=== PATIENT | female | born 1955 | race Two or more races ===

== ENCOUNTER 2019-09-17 10:00 | Inpatient (IN) | payer OTHER, SELFPAY ==
[2019-08-19 08:43] VITALS: BMI 29.8
[2019-08-19 08:54] VITALS: BP 162/92; PULSE 81; RESP 18; TEMP 36.9; O2SAT 97
[2019-09-17] VITALS (10 sets, daily range): BP systolic 117–157; BP diastolic 58–98; PULSE 72–95; RESP 10–18; TEMP 35.6–36.8; O2SAT 93–100; BMI 29.9
--- NOTE | ~2019-09-17 | XR_ITS ---
EXAMINATION: XR knee LT 2V DATE: 09/17/2019 10:34 INDICATION: Total left knee arthroplasty. Postop. TECHNIQUE: 2 views of left knee were obtained. COMPARISON: None. FINDINGS: There is a total left knee arthroplasty without patellar resurfacing in near-anatomic align ment. No fracture. There is gas in the knee joint and soft tissues, consistent with recent surgery. A nterior skin celine are noted. IMPRESSION: 1. Total left knee arthroplasty in near-anatomic alignment. Reviewed, dictated and finalized at location A. ATCHER REFINERY
[2019-09-17] MEDS: LACTATED RINGERS 1,000 ML 30 ML IV CONT ×2 (07:15→10:13)
--- NOTE | 2019-09-17 07:35 | WPDANESEPPF ---
Anes - Initial Pre Proc Eval Procedure: Operation Date: 09/17/19 07:30 Proposed Procedures p Left Total Knee Arthroplasty(Left) - Prasanna Ramos MD Date/Time: 09/17/19 07:35 Surgeon: Prasanna Ramos MD Pre Op Diagnosis: Left Knee DJD Patient Data Age: 64 Gender: F Height: 1.57 m Weight: 74.4 kg Last Vital Signs Temp 36.7 C 09/17/19 07:00 Pulse 81 09/17/19 07:00 Resp 18 09/17/19 07:00 BP 157/89 H 09/17/19 07:00 Pulse Ox 99 09/17/19 07:00 Allergies Allergy/AdvReac Type Severity Reaction Status Date / Time tetracycline Allergy Unknown Rash Verified 08/19/19 09:31 Home Medications Medication Instructions Recorded Confirmed Type amlodipine 10 mg PO DAILY 08/19/19 08/19/19 History chlorhexidine gluconate 4 % 1 applic TOPICAL ONCE #236 ml 08/19/19 08/19/19 Rx topical liquid furosemide 20 mg PO DAILY 08/19/19 08/19/19 History levothyroxine 100 mcg PO DAILY 08/19/19 08/19/19 History mv,Ca,min-folic acid-vit K1 1 tablet PO DAILY 08/19/19 08/19/19 History [One-A-Day Women's 50 Plus] naproxen sodium [Aleve] 440 mg PO PRN PRN 08/19/19 08/19/19 History simvastatin 10 mg PO DAILY 08/19/19 08/19/19 History Patient hx anesthesia problems: none Family hx anesthesia problems: none [facility] Past Medical History Medical History (Updated 08/19/19 @ 12:58 by JESS Brandon) Degenerative joint disease of knee HTN (hypertension) Left knee pain Vision abnormalities Social History Social History Smoking status: Heavy tobacco smoker Alcohol intake: current Anes - Eval Final PreProcedure Day of Procedure 09/17/19 07:35 Patient weight: obese Heart: regular rate and rhythm Lungs: clear to auscultation and normal air movement Airway: Mallampati scale class II Neurological: alert and oriented Last oral intake: >/= 8 hours ASA classification: III Emergent: no Anesthetic plan: proceed Anesthesia type and monitoring: general Informed Consent: The patient's anesthetic plan and its attendant risks and benefits were discussed with the patient/family/POA. Questions were solicited and answers provided to the satisfaction of the patient/family/POA.
--- NOTE | 2019-09-17 07:37 | WPDHPUPDATE1 ---
History and Physical Update Update Date/Time: 09/17/19 07:37 History and Physical has been reviewed, including an updated exam of the patient. There are NO changes in the patient's condition. Risks, benefits, and alternatives have been discussed and questions answered. Patient agrees to proceed with procedure.
[2019-09-17] MEDS: ceFAZolin 2 GM/D5W 50 ML 2 GM/50 ML BAG IVPB ×3 (07:54→22:20)
--- NOTE | 2019-09-17 07:54 | WPDANESPNB ---
Anes - Peripheral Nerve Block Date/Time: 09/17/19 07:54 I have discussed with the patient/family/POA the placement of a peripheral nerve block for post-operative pain management, including associated risks, benefits, complications, and side effects. Alternative methods of post-operative analgesia were detailed. Questions were solicited and answers provided to the satisfaction of the patient/family/POA. Time-Out: A pre-procedural Time-Out was completed immediately before starting the procedure and confirmed: Patient Identification, Site, Procedure, Patient Position and the Availability of Requisite Equipment. Clinical Indications: Acute post-operative pain management requested by the operative surgeon. Nerve Block Insertion Note Anes-nerve block: femoral left Patient position: supine Skin prep: chlorhexidine Needle: 22 gauge, stimulating, insulated echogenic needle. Needle length: 80 mm Technique: ultrasound Technique comment: in plane Injectate: bupivacaine 0.5% with epi 5 mcg/ml (30cc) and dexamethasone (mg) (4mg) Observations: tolerated well Complications: none Procedure start time:: 740 Procedure end time::
[2019-09-17] MEDS: IBUPROFEN IV 800 MG/200 ML 800 MG/200 ML BAG 400 MG IVPB (08:02)
--- NOTE | 2019-09-17 09:55 | PM.OP ---
Procedure Note - Brief Procedure Note - Brief Date of procedure: 09/17/19 Pre-op diagnosis: Left Knee DJD Post-op diagnosis: same Procedure performed: L TKA Anesthesia: GETA Surgeon: Prasanna Ramos MD Estimated blood loss (mL): 100 Complications: No immediate complications Condition: stable Disposition: PACU
--- NOTE | 2019-09-17 11:52 | PC.NURSE ---
This patient, Janis Hubers, was admitted to 3 [facility] Surg Room 328-01. Patient/family oriented to hospital policies and general routines including ID bracelet, bed and alarms, visiting hours, pain management, procedures, bathroom and other care routines, personal items, smoking policy, room service/diet, and visiting hours. Valuables list has been completed. Information on how to activate the Rapid Response Team has been discussed. Patient/Family are encouraged to report perceived risks to care and to ask questions if they do not understand what they are told or what they should do.
[2019-09-17] MEDS: SODIUM CHLORIDE 0.9% IV 1,000 ML 125 ML IV CONT (12:06)
--- NOTE | 2019-09-17 13:14 | OP_ITS ---
DATE OF PROCEDURE: 09/17/2019 PREOPERATIVE DIAGNOSIS: Left knee degenerative joint disease. POSTOPERATIVE DIAGNOSIS: Left knee degenerative joint disease. PROCEDURE: Left total knee arthroplasty. ANESTHESIA: General. COMPLICATIONS: None. INDICATIONS: This is a 64-year-old female with end-stage left knee DJD. She was indicated for left total knee arthroplasty. DESCRIPTION OF PROCEDURE: The patient was taken to the operating room in stable condition and placed in supine position. General anesthesia was induced and the left lower extremity was prepped and draped sterilely from the toes to the thigh. A midline skin incision was made. Medial parapatellar arthrotomy was made. Patella was everted. There was severe arthrosis in all 3 compartments of the knee joint. IM elizabet was placed in the femur. A distal femoral cut was made at 5 degrees of valgus removing approximately 9 mm of bone from the high side. Then, the knee was sized to 65, so a cutting block was placed in 3 degrees external rotation in line with Ted line. Anterior, posterior, and chamfer cuts were made to the femur. The cuts were excellent. Next, an IM elizabet was placed in tibia and a transtibial cut was made along the long axis of the tibia removing approximately 10 mm of bone from the high side. The tibia was planed to a smooth surface. Posterior osteophytes were removed with an osteotome. A 67 tibial trial was placed in line with one-third medial aspect of the tibial tubercle and then a trial 65 femoral component was placed and then eventually a 12 poly trial was placed. The knee came out to full extension. There was good stability in varus valgus stress. There was good AP stability as well. There was no excessive rollback in flexion, and there was no patellar tilt. The trial instrumentation was removed and then a Biomet #67 tibial component then was press-fit into the tibia and the fit was excellent. Next, a Biomet 65 femoral component was tapped into place and it was flushed with the cut surfaces. A #12 CRE poly then was placed and attached and locked in place. The knee came out to full extension. There was good stability in varus-valgus stress in both flexion and extension. There was good AP stability. The patella tracked without any tilt and there was no excessive rollback in flexion. The tourniquet was deflated. The bleeders were cauterized. The knee joint then was washed out with a mixture of sterile Betadine and sterile water for 3 minutes, and then the arthrotomy was approximated with #1 Vicryl suture and subcutaneous tissues with 2-0 Vicryl. The skin was approximated with celine. Wounds were washed, placed sterile dressing. The patient then was extubated and sent to recovery. Nunu I MT: Cecilia
[2019-09-17] MEDS: DOCUSATE SODIUM 100 MG CAPSULE PO (16:27)
[2019-09-17] MEDS: DIAZEPAM 5 MG TABLET PO (16:27)
[2019-09-17] MEDS: CELECOXIB 200 MG CAPSULE PO (16:29)
[2019-09-17] MEDS: FAMOTIDINE 20 MG TABLET PO (21:28)
[2019-09-18] MEDS: LEVOTHYROXINE SODIUM 100 MCG TABLET PO (05:55)
[2019-09-18 05:56] LABS: Basophils Percent Auto 0.3 % (0.2-1.2); Hematocrit 26.5 % (37.0-47.0); Hemoglobin 8.3 g/dL (12.0-15.0); Immature Granulocyte Absolute 0.06 K/mm3 (0.00-0.031); Immature Granulocyte Percent A 0.5 % (0-0.5); Lymphocytes Absolute Auto 1.56 K/mm3 (0.9-3.2); Lymphocytes Percent Auto 12.5 % (18.3-44.2); Mean Corpuscular HGB Conc 31.3 g/dl (32-36); Mean Corpuscular Hemoglobin 25.2 pg (26-34); Mean Corpuscular Volume 80.5 fl (80-100); Mean Platelet Volume 11.2 fl (7.4-10.4); Monocytes Absolute Auto 1.6 K/mm3 (0.1-0.6); Neutrophils Absolute Auto 9.2 K/mm3 (1.3-6.7); Neutrophils Percent Auto 73.7 % (45.5-73.1); Platelet Count Result 230 k/mm3 (150-375); Red Blood Count 3.29 M/mm3 (4.2-5.4); Red Cell Distribution Width 13.5 % (11.5-14.5); White Blood Count 12.5 K/mm3 (4.5-10.0)
[2019-09-18] MEDS: ceFAZolin 2 GM/D5W 50 ML 2 GM/50 ML BAG IVPB (05:56)
[2019-09-18] MEDS: DIAZEPAM 5 MG TABLET PO ×2 (05:59→13:50)
[2019-09-18 06:00] VITALS: BP 130/77; PULSE 77; RESP 18; TEMP 36.6; O2SAT 100
[2019-09-18 06:22] LABS: Blood Urea Nitrogen 14 mg/dL (7-17); Calcium 8.5 mg/dL (8.4-10.2); Carbon Dioxide 25 mmol/L (22-30); Chloride 101 mmol/L (98-107); Estimated CRCL calculation 66 ml/min; Estimated Glomerular Filt Rate > 60; Glucose 124 mg/dL (65-105); Potassium 3.8 mmol/L (3.4-5.0); Sodium 137 mmol/L (137-145)
--- NOTE | 2019-09-18 08:58 | PM.IMCN ---
Assessment and Plan Assessment and plan (1) Degenerative joint disease of knee: Qualifiers: Osteoarthritis type: primary Laterality: bilateral Qualified Code(s): M17.0 - Bilateral primary osteoarthritis of knee Code(s): M17.10 - Unilateral primary osteoarthritis, unspecified knee Status: Acute Assessment and Plan: Patient states this is in both knees with left being worse than right. POD [address] Ramos. Patient is doing well overall Post op management, PT/OT, DVT prophylaxis, and pain management per primary service Monitor for improvement (2) HTN (hypertension): Code(s): I10 - Essential (primary) hypertension Status: Acute Assessment and Plan: BP 130s sys. No dizziness/lightheadedness Continue with home amlodipine Patient states she usually only takes lasix 3 times per week as needed for fluid retention . Will hold this for now and likely resume at discharge Monitor (3) Hypothyroidism: Code(s): E03.9 - Hypothyroidism, unspecified Status: Acute Assessment and Plan: No acute issues at this time Continue levothyroxine home dose (4) Dyslipidemia: Code(s): E78.5 - Hyperlipidemia, unspecified Status: Acute Assessment and Plan: No acute issues at this time Continue simvastatin Additional Plan Supervising physician for this Hospitalist Consultation is Dr. Janis Stanton DOS 09/18/19 at roughly 8:45 Thank you for allowing the Hospitalist team to care for this patient during their stay. We will continue to follow with you. Please call with any questions HPI Data of Consult Consult date: 09/18/19 Requesting Physician: Prasanna Ramos MD Primary Care Provider: Dick Thompson Consult Narrative Narrative: Janis Kapoor is a 64 year old female With history of hypothyroidism, HTN, and OA of B/L knees who presented to the hospital for left total knee arthroplasty per Dr. Ramos POD1; Hospitalist service has been consulted for medical management of co-morbid conditions. Patient states her bilateral knee pain really began to worsen in her left knee sometime last year to a point were oral anti-flammatories were not helping with her pain and she could not even mow her lawn or do other ADLs without being in pain. She states she had an imaging of the left knee and was explained to her her knee was [id number] ; she decided to proceed for elective LTK arthroplast yesterday. She stated at its worse, pain was 9/10; today she notes her knee pain is about 6/10. She reports doing well walking to the bathroom with OT this morning. She has no other complaints today. Denies f/c/ns, headaches, dizziness, lightheadedness, changes in v/h, cp/palpitations, sob/cough, n/v/d/c, abd pain, dysphagia, melena, brbpr, dysuria, hematuria, cloudy urine, calf pain/swelling, s/sx of stroke Review of Systems Review of Systems: All systems reviewed & are unremarkable except as noted in HPI and below PMFSH Past Medical History Medical History Degenerative joint disease of knee Dyslipidemia HTN (hypertension) Hypothyroidism Left knee pain Vision abnormalities Surgical History Surgical History (Updated 09/18/19 @ 09:11 by Twan Mckenzie PA-C) History of total left knee replacement (~08/2019) Family History Family History Father Hypertension Carcinoma of colon Mother Cerebrovascular accident Diabetes mellitus CHF (congestive heart failure) Other Family history of arthritis Social History Social History Social History: Patient lives at home alone. 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 Her PCP is Dr. Thompson
[2019-09-18 10:25] VITALS: O2SAT 97
[2019-09-18 10:43] VITALS: BP 129/70; PULSE 107
[2019-09-18] MEDS: DOCUSATE SODIUM 100 MG CAPSULE PO ×2 (10:45→20:28)
[2019-09-18] MEDS: SIMVASTATIN 10 MG TABLET PO (10:45)
[2019-09-18] MEDS: AMLODIPINE BESYLATE 5 MG TABLET 10 MG PO (10:45)
[2019-09-18] MEDS: ASPIRIN 325 MG ENTERIC TABLET 650 MG PO (10:46)
[2019-09-18] MEDS: CELECOXIB 200 MG CAPSULE PO ×2 (10:47→20:28)
[2019-09-18] MEDS: FAMOTIDINE 20 MG TABLET PO ×2 (10:50→20:28)
--- NOTE | 2019-09-18 13:27 | PM.PNORT ---
Progress Note: A&P Additional Plan POD 1 WITH SLOW PROGRESS WITH PT. CONT PT. Time Spent With Patient Time with patient: less than 15 minutes Subjective Subjective Date/Time Seen: 09/18/19 13:27 POD 1 DOING WELL. NO CALF PAIN Exam Extrem: Other: VSS AFEBRILE DRESSING DRY NV INTACT NEG HOMANS SIGN CALF SOFT NON TENDER. Objective Data Vital Signs Vital Signs: Vital Signs - 24 hr 09/17/19 14:00 09/17/19 22:00 09/18/19 06:00 Temperature 35.6 C L 36.6 C 36.6 C Pulse Rate 93 95 77 Respiratory Rate 16 18 18 Blood Pressure 130/79 128/58 L 130/77 Pulse Oximetry 99 98 100 09/18/19 10:25 09/18/19 10:43 Temperature Pulse Rate 107 H Respiratory Rate Blood Pressure 129/70 Pulse Oximetry 97 Intake/Output Intake/Output: Intake & Output 09/15/19 09/16/19 09/17/19 09/18/19 23:59 23:59 23:59 23:59 Intake Total 3750 1170 Output Total 600 2000 Balance 3150 -830 Meds/Results Medications: Active Medications Generic Name Dose Route Start Last Admin Trade Name Freq PRN Reason Stop Dose Admin Acetaminophen 1,000 mg 09/17/19 09:59 Tylenol Tablet PO Q6H PRN Mild Pain (1-3) Amlodipine Besylate 10 mg 09/18/19 09:00 09/18/19 10:45 Norvasc PO 10 mg DAILY ELAINA Administration Aspirin 650 mg 09/18/19 09:00 09/18/19 10:46 Aspirin Ec PO 650 mg DAILY ELAINA Administration Celecoxib 200 mg 09/17/19 17:00 09/18/19 10:47 Celebrex PO 200 mg BIDWM ELAINA Administration Diazepam 5 mg 09/17/19 09:59 09/18/19 05:59 Valium Po PO 5 mg Q8H PRN Administration Spasms Diphenhydramine HCl 25 mg 09/17/19 09:59 Benadryl Inj IV PUSH Q6H PRN Itching Docusate Sodium 100 mg 09/17/19 17:00 09/18/19 10:45 Colace Capsule PO 100 mg BID ELAINA Administration Famotidine 20 mg 09/17/19 21:00 09/18/19 10:50 Pepcid PO 20 mg Q12HR ELAINA Administration Furosemide 20 mg 09/18/19 09:00 09/18/19 10:49 Lasix Tablet PO Not Given DAILY [facility] Levothyroxine Sodium 100 mcg 09/18/19 06:30 09/18/19 05:55 Synthroid PO 100 mcg DAILY@0630 [facility] Administration Morphine Sulfate 4 mg 09/17/19 09:59 Morphine Sulfate Inj IV PUSH Q2H PRN Breakthrough pain rated 7-10 Naloxone HCl 0.1 mg 09/17/19 09:59 Narcan IV PUSH Q2M PRN Opiate Reversal Ondansetron HCl 4 mg 09/17/19 09:59 Zofran Inj IV PUSH Q4H PRN Nausea And Vomiting Oxycodone/Acetaminophen 1 tablet 09/17/19 09:59 09/18/19 09:22 Percocet 5-325 Mg PO 1 tablet Q4H PRN Administration Pain Rated 4-6 Simvastatin 10 mg 09/18/19 09:00 09/18/19 10:45 Zocor PO 10 mg DAILY ELAINA Administration Radiology Results: ITS Impressions Knee X-Ray 09/17/19 10:46 IMPRESSION: 1. Total left knee arthroplasty in near-anatomic alignment. Labs Labs: Laboratory Results - last 24 hr 09/18/19 09/18/19 05:36 05:36 WBC 12.5 H RBC 3.29 L Hgb 8.3 L Hct 26.5 L MCV 80.5 MCH 25.2 L MCHC 31.3 L RDW 13.5 Plt Count 230 MPV 11.2 H Immature Gran % (Auto) 0.5 Neut % (Auto) 73.7 H Lymph % (Auto) 12.5 L [place] % (Auto) 13.0 H Eos % (Auto) 0.0 Baso % (Auto) 0.3 Lymph # (Auto) 1.56 [place] # (Auto) 1.6 H Eos # (Auto) 0.0 Baso # (Auto) 0.0 Abs Immat Gran (auto) 0.06 H Absolute Neuts (auto) 9.2 H Absolute Nucleated RBC 0.0 Nucleated RBC % 0.0 Sodium 137 Potassium 3.8 Chloride 101 Carbon Dioxide 25 BUN 14 Creatinine 0.70 Estim Creat Clear Calc 66 Estimated GFR > 60 Glucose 124 H Calcium 8.5 Quality VTE Prophylaxis VTE prophylaxis: pharmacologic ordered (per primary service)
--- NOTE | 2019-09-18 13:49 | WPDANESPN ---
Anes - Prog Note Post-Op Date/Time: 09/18/19 13:49 Cardiovascular status: normal Respiratory status: normal Airway patency: baseline Mental status: baseline Post-Op hydration status: normal Vital Signs: Last Vital Signs Temp 36.6 C 09/18/19 06:00 Pulse 107 H 09/18/19 10:43 Resp 18 09/18/19 06:00 BP 129/70 09/18/19 10:43 Pulse Ox 97 09/18/19 10:25 Pain Score (VAS): 0/10. Patient resting in bed at time of assessment, appears comfortable. Support person at bedside. I/O: Intake & Output 09/17/19 09/18/19 09/18/19 23:59 07:59 15:59 Intake Total 2610 450 720 Output Total 600 2000 Balance 2009 720 Laboratory Tests 09/18/19 05:36 09/18/19 05:36 09/18/19 09/18/19 05:36 05:36 WBC 12.5 H RBC 3.29 L Hgb 8.3 L Hct 26.5 L MCV 80.5 MCH 25.2 L MCHC 31.3 L RDW 13.5 Plt Count 230 MPV 11.2 H Immature Gran % (Auto) 0.5 Neut % (Auto) 73.7 H Lymph % (Auto) 12.5 L [place] % (Auto) 13.0 H Eos % (Auto) 0.0 Baso % (Auto) 0.3 Lymph # (Auto) 1.56 [place] # (Auto) 1.6 H Eos # (Auto) 0.0 Baso # (Auto) 0.0 Abs Immat Gran (auto) 0.06 H Absolute Neuts (auto) 9.2 H Absolute Nucleated RBC 0.0 Nucleated RBC % 0.0 Sodium 137 Potassium 3.8 Chloride 101 Carbon Dioxide 25 BUN 14 Creatinine 0.70 Estim Creat Clear Calc 66 Estimated GFR > 60 Glucose 124 H Calcium 8.5 Post-procedural complaints: none Patient Feedback: Patient satisfied with anesthetic care.
[2019-09-18 22:20] VITALS: BP 126/65; PULSE 102; RESP 20; TEMP 37.2; O2SAT 95
[2019-09-19 06:00] VITALS: BP 132/65; PULSE 106; RESP 16; TEMP 36.9; O2SAT 96
[2019-09-19] MEDS: LEVOTHYROXINE SODIUM 100 MCG TABLET PO (06:14)
[2019-09-19 06:21] LABS: Basophils Percent Auto 0.5 % (0.2-1.2); Eosinophils Absolute Auto 0.1 K/mm3 (0-0.3); Eosinophils Percent Auto 0.9 % (0-4.4); Hematocrit 25.5 % (37.0-47.0); Hemoglobin 7.9 g/dL (12.0-15.0); Immature Granulocyte Absolute 0.03 K/mm3 (0.00-0.031); Immature Granulocyte Percent A 0.4 % (0-0.5); Lymphocytes Absolute Auto 2.08 K/mm3 (0.9-3.2); Lymphocytes Percent Auto 26.2 % (18.3-44.2); Mean Corpuscular Hemoglobin 25.4 pg (26-34); Mean Platelet Volume 10.4 fl (7.4-10.4); Monocytes Absolute Auto 1.1 K/mm3 (0.1-0.6); Monocytes Percent Auto 13.2 % (2.6-8.5); Neutrophils Absolute Auto 4.7 K/mm3 (1.3-6.7); Neutrophils Percent Auto 58.8 % (45.5-73.1); Platelet Count Result 185 k/mm3 (150-375); Red Blood Count 3.11 M/mm3 (4.2-5.4); Red Cell Distribution Width 13.7 % (11.5-14.5); White Blood Count 7.9 K/mm3 (4.5-10.0)
[2019-09-19] MEDS: FAMOTIDINE 20 MG TABLET PO (09:01)
[2019-09-19] MEDS: DOCUSATE SODIUM 100 MG CAPSULE PO ×2 (09:01→17:46)
[2019-09-19] MEDS: AMLODIPINE BESYLATE 5 MG TABLET 10 MG PO (09:01)
[2019-09-19] MEDS: ASPIRIN 325 MG ENTERIC TABLET 650 MG PO (09:02)
[2019-09-19] MEDS: SIMVASTATIN 10 MG TABLET PO (09:02)
[2019-09-19] MEDS: CELECOXIB 200 MG CAPSULE PO ×2 (09:02→17:46)
--- NOTE | 2019-09-19 11:53 | PM.IMPN ---
Progress Note: A&P Assessment and Plan (1) Degenerative joint disease of knee: Qualifiers: Osteoarthritis type: primary Laterality: bilateral Qualified Code(s): M17.0 - Bilateral primary osteoarthritis of knee Code(s): M17.10 - Unilateral primary osteoarthritis, unspecified knee Status: Acute Assessment and Plan: POD [address] Ramos. Patient is doing well overall, improving with therapy. Wishing to go home today Post op management, PT/OT, DVT prophylaxis, and pain management per primary service Monitor for improvement (2) HTN (hypertension): Code(s): I10 - Essential (primary) hypertension Status: Acute Assessment and Plan: BP 130s sys. No dizziness/lightheadedness Continue with home amlodipine Patient states she usually only takes lasix 3 times per week as needed for fluid retention . Will hold this for now and likely resume at discharge Monitor (3) Hypothyroidism: Code(s): E03.9 - Hypothyroidism, unspecified Status: Acute Assessment and Plan: No acute issues at this time Continue levothyroxine home dose (4) Dyslipidemia: Code(s): E78.5 - Hyperlipidemia, unspecified Status: Acute Assessment and Plan: No acute issues at this time Continue simvastatin Subjective Date/time seen: 09/19/19 11:53 This is a Hospitalist Consult Progress Note Interval history: Patient is a 64 yo F with history of hypothyroidism, HTN, and OA of B/L knees who is here for elective LTKA per Dr. Ramos POD2; Hospitalist service has been consulted for medical management of comorbid conditions during hospital stay. Patient is doing better today. Her pain is reasonable today. She thinks she did well with therapy today. She is hoping to be discharged today. Patient has no other complaints. Denies f/c/ns, headaches, dizziness, lightheadedness, changes in v/h, cp/palpitations, sob/cough, n/v/d/c, abd pain, dysphagia, melena, brbpr, dysuria, hematuria, cloudy urine, s/sx of stroke Review of Systems Review of Systems: All systems reviewed & are unremarkable except as noted in HPI and below Exam Narrative: Exam Narrative: Patient lying in semi-stovall's position at time of visit; sleeping, but easily arousable with verbal stimuli Const: General: cooperative, healthy appearing, comfortable, no acute distress, well developed and alert Nutritional Appearance: well nourished Orientation/consciousness: patient oriented x3 HENMT: Head: normocephalic and atraumatic Ears: external ears normal General nose exam: Normal nares present Face and sinus: face symmetric Mouth: Yes lip normal and Yes moist mucous membranes Teeth and gingiva: dentition normal Throat: posterior oropharynx normal and uvula midline Eyes: General: appearance normal, both eyes and all related structures Sclera: sclerae normal Pupils: Equal, round and reactive pupils present EOM: EOMs intact bilaterally Neck: Neck: trachea midline and supple Resp: Effort & Inspection: normal respiratory effort Auscultation: clear to auscultation bilaterally Cardio: Rate: regular rate Rhythm: regular rhythm Heart sounds: no murmurs GI: Inspection: non-distended GI Palp: No abdominal tenderness and Yes Soft to palpation Auscultation: normal bowel sounds and Hypoactive bowel sounds present Skin: General skin exam: normal color and no rashes or lesions noted Neuro: General: patient oriented x3, moves all extremities and no focal motor deficits Cranial nerves: Yes Equal, round and reactive pupils present Motor exam (neuro): 5/5 motor strength present throughout Sensory Exam: normal sensation Extrem: Right lower extremity: no edema Left lower extremity: no edema Other: No calf ttp b/l. Left knee wrapped in GABY bandage down to lower leg. Sens
--- NOTE | 2019-09-19 17:14 | PM.PNORT ---
Progress Note: A&P Additional Plan POD 2 WITH GOOD IMPROVEMENT WITH PT. OK TO DC HOME F/U IN 3 WEEKS. Subjective Subjective Date/Time Seen: 09/19/19 17:14 POD 2 DOING WELL. PROGRESS WITH PT IS GOOD, NO CALF PAIN Exam Extrem: Other: VSS AFEBRILE DRESSING DRY NV INTACT NEG HOMANS SIGN Objective Data Vital Signs Vital Signs: Vital Signs - 24 hr 09/18/19 22:20 09/19/19 06:00 Temperature 37.2 C 36.9 C Pulse Rate 102 H 106 H Respiratory Rate 20 16 Blood Pressure 126/65 132/65 Pulse Oximetry 95 96 Intake/Output Intake/Output: Intake & Output 09/16/19 09/17/19 09/18/19 09/19/19 23:59 23:59 23:59 23:59 Intake Total 3750 2530 880 Output Total 600 4350 600 Balance 3150 -1820 280 Meds/Results Medications: Active Medications Generic Name Dose Route Start Last Admin Trade Name Freq PRN Reason Stop Dose Admin Acetaminophen 1,000 mg 09/17/19 09:59 Tylenol Tablet PO Q6H PRN Mild Pain (1-3) Amlodipine Besylate 10 mg 09/18/19 09:00 09/19/19 09:01 Norvasc PO 10 mg DAILY ELAINA Administration Aspirin 650 mg 09/18/19 09:00 09/19/19 09:02 Aspirin Ec PO 650 mg DAILY ELAINA Administration Celecoxib 200 mg 09/17/19 17:00 09/19/19 09:02 Celebrex PO 200 mg BIDWM ELAINA Administration Diazepam 5 mg 09/17/19 09:59 09/18/19 13:50 Valium Po PO 5 mg Q8H PRN Administration Spasms Diphenhydramine HCl 25 mg 09/17/19 09:59 Benadryl Inj IV PUSH Q6H PRN Itching Docusate Sodium 100 mg 09/17/19 17:00 09/19/19 09:01 Colace Capsule PO 100 mg BID ELAINA Administration Famotidine 20 mg 09/17/19 21:00 09/19/19 09:01 Pepcid PO 20 mg Q12HR ELAINA Administration Furosemide 20 mg 09/18/19 09:00 09/18/19 10:49 Lasix Tablet PO Not Given DAILY ELAINA Levothyroxine Sodium 100 mcg 09/18/19 06:30 09/19/19 06:14 Synthroid PO 100 mcg DAILY@0630 ELAINA Administration Morphine Sulfate 4 mg 09/17/19 09:59 Morphine Sulfate Inj IV PUSH Q2H PRN Breakthrough pain rated 7-10 Naloxone HCl 0.1 mg 09/17/19 09:59 Narcan IV PUSH Q2M PRN Opiate Reversal Ondansetron HCl 4 mg 09/17/19 09:59 Zofran Inj IV PUSH Q4H PRN Nausea And Vomiting Oxycodone/Acetaminophen 1 tablet 09/17/19 09:59 09/19/19 06:18 Percocet 5-325 Mg PO 1 tablet Q4H PRN Administration Pain Rated 4-6 Oxycodone/Acetaminophen 2 tablet 09/18/19 13:40 09/19/19 10:09 Percocet 5-325 Mg PO 2 tablet Q4H PRN Administration Pain Rated 7-10 Simvastatin 10 mg 09/18/19 09:00 09/19/19 09:02 Zocor PO 10 mg DAILY ELAINA Administration Radiology Results: ITS Impressions Knee X-Ray 09/17/19 10:46 IMPRESSION: 1. Total left knee arthroplasty in near-anatomic alignment. Labs Labs: Laboratory Results - last 24 hr 09/19/19 06:07 WBC 7.9 RBC 3.11 L Hgb 7.9 L Hct 25.5 L MCV 82.0 MCH 25.4 L MCHC 31.0 L RDW 13.7 Plt Count 185 MPV 10.4 Immature Gran % (Auto) 0.4 Neut % (Auto) 58.8 Lymph % (Auto) 26.2 [place] % (Auto) 13.2 H Eos % (Auto) 0.9 Baso % (Auto) 0.5 Lymph # (Auto) 2.08 [place] # (Auto) 1.1 H Eos # (Auto) 0.1 Baso # (Auto) 0.0 Abs Immat Gran (auto) 0.03 Absolute Neuts (auto) 4.7 Absolute Nucleated RBC 0.0 Nucleated RBC % 0.0 Quality VTE Prophylaxis VTE prophylaxis: pharmacologic ordered (per primary service)
--- NOTE | 2019-10-17 13:46 | PM.DS ---
DS: Diagnosis Admitting Diagnosis Admitting Diagnosis: Unilateral primary osteoarthritis, left knee Discharge Diagnosis (1) Degenerative joint disease of knee: Qualifiers: Osteoarthritis type: primary Laterality: bilateral Qualified Code(s): M17.0 - Bilateral primary osteoarthritis of knee Code(s): M17.10 - Unilateral primary osteoarthritis, unspecified knee Status: Acute Assessment and Plan: post op left tka did very well during hospital course. she was stable throughout. she passed pt and was discharged home with home health DS: Summary Time Spent with Patient Time attestation: Total time spent providing and/or coordinating discharge services: 15 min Discharge Plan Discharge Attending physician on discharge: Prasanna Ramos Consulting providers: Janis Perez ; Twan Mckenzie ; Marvin Otero V. Discharging Clinician: Prasanna Ramos Anticipated Discharge Date/Time: 09/19/19 17:05 Patient Disposition: Home Health Service Activity: may shower, no driving and follow weight bearing status Diet: as tolerated Wound Care Instructions: keep dressing dry Discharge Instructions: Care Coordination. Patient to have [facility] [phone]. They will contact patient to schedule first appointment. Patient Instructions: Antibiotic Form, Pain Management (GEN) Stand Alone Forms: General Discharge Information Follow-up/Referrals: Prasanna Ramos MD [Physician] - 3 Weeks Discharge Medications: New aspirin 325 mg Tablet,Delayed Release (Dr/Ec) 650 mg PO DAILY 14 Days Qty: 28 RF: 0 Continued simvastatin 10 mg Tablet 10 mg PO DAILY RF: 0 amlodipine 10 mg Tablet 10 mg PO DAILY RF: 0 furosemide 20 mg Tablet 20 mg PO DAILY RF: 0 levothyroxine 100 mcg Capsule 100 mcg PO DAILY RF: 0 naproxen sodium [Aleve] 220 mg Capsule 440 mg PO PRN PRN (Reason: Pain) RF: 0 One-A-Day Women's 50 Plus 400-20 mcg Tablet 1 tablet PO DAILY RF: 0 No Action hydrocodone-acetaminophen [[place]] 5-325 mg tablet 1 tablet PO Q6H PRN (Reason: pain) Qty: 30 RF: 0 hydrocodone-acetaminophen [[place]] 5-325 mg tablet 1 tablet PO Q6H PRN (Reason: pain) Qty: 25 RF: 0 Date of admission: 09/17/19 10:00 Admitting Provider: Prasanna Ramos Discharge Date/Time: 09/19/19 18:20 Attending physician on admission: Prasanna Ramos Condition: Stable Quality VTE Prophylaxis VTE prophylaxis: pharmacologic ordered (per primary service)
== END 2019-09-19 18:20 | disposition home health service (06) | DRG 470 ==
LOC: ANH3MEDSUR 11:48
PROVIDERS: Physician Assistant; Admitting Provider Orthopaedic Surgery; Visit Provider Orthopaedic Surgery
PROC: 0SRD0JA Replacement of Left Knee Joint with Synthetic Substitute, Uncemented, Open Approach (ICD-10-PCS; CPT 27447; principal; 2019-09-17 07:30)
DX: M17.0 Bilateral primary osteoarthritis of knee (principal); Z28.21 Immunization not carried out because of patient refusal; E66.9 Obesity, unspecified; I10 Essential (primary) hypertension; E03.9 Hypothyroidism, unspecified; E78.5 Hyperlipidemia, unspecified; Z87.891 Personal history of nicotine dependence
CPT/HCPCS: 36415; 73560; 80048; 85025; 86850; 86900; 86901; 97110; 97116; 97162; 97165; 97530; 97535; A9270; C1713; C1776; J0131; J0171; J0690; J1100; J1170; J1741; J2250; J2270; J2405; J2704; J2795; J3010; J7030; J7120

== ENCOUNTER 2020-05-11 01:11 | Outpatient (CLI) | payer OTHER, SELFPAY ==
[2020-05-11 17:41] LABS: SARS-CoV-2 RNA PCR Negative
== END 2020-05-11 01:12 | disposition home or self-care (01) ==
LOC: ANHCOVIDDT 01:11
PROVIDERS: Visit Provider Internal Medicine Gastroenterology
DX: Z01.812 Encounter for preprocedural laboratory examination (principal); Z20.828 Contact with and (suspected) exposure to other viral communicable diseases
CPT/HCPCS: 87635; C9803; U0003

== ENCOUNTER 2020-05-13 01:22 | Day surgery (SDC) | payer OTHER, SELFPAY ==
[2020-05-07 12:55] VITALS: BMI 29.8
[2020-05-13 06:16] VITALS: BP 175/78; PULSE 82; RESP 18; TEMP 36.6; O2SAT 97
[2020-05-13] MEDS: LACTATED RINGERS 1,000 ML 150 ML IV CONT (06:37)
[2020-05-13] MEDS: AMPICILLIN 2 GM/NS 100 ML 2 GM/100 ML BAG IVPB (06:38)
--- NOTE | 2020-05-13 07:02 | WPDANESEPPF ---
Anes - Initial Pre Proc Eval Procedure: Operation Date: 05/13/20 07:30 Proposed Procedures p Esophagogastroduodenoscopy&Screen Colon - Micheal Lake MD Date/Time: 05/13/20 07:02 Surgeon: Micheal Lake MD Pre Op Diagnosis: Neoplasm Screening , Anemia Patient Data Age: 64 Gender: F Height: 5 ft 2 in Weight: 73.6 kg Last Vital Signs Temp 97.8 F 05/13/20 06:16 Pulse 82 05/13/20 06:16 Resp 18 05/13/20 06:16 BP 175/78 H 05/13/20 06:16 Pulse Ox 97 05/13/20 06:16 Allergies Allergy/AdvReac Type Severity Reaction Status Date / Time tetracycline Allergy Unknown Rash Verified 05/13/20 06:15 Home Medications Medication Instructions Recorded Confirmed Type One-A-Day Women's 50 Plus 1 tablet PO DAILY 08/19/19 05/07/20 History amlodipine 10 mg PO DAILY 08/19/19 05/07/20 History furosemide 20 mg PO DAILY 08/19/19 05/07/20 History levothyroxine 100 mcg PO DAILY 08/19/19 05/07/20 History naproxen sodium [Aleve] 440 mg PO PRN PRN 08/19/19 05/07/20 History simvastatin 10 mg PO DAILY 08/19/19 05/07/20 History aspirin 650 mg PO DAILY 14 Days #28 tablet 09/19/19 05/07/20 Rx tramadol 50 mg tablet 50 mg PO Q6H PRN 01/06/20 05/07/20 History amoxicillin 500 mg tablet 500 mg PO Q8H #8 tablet 04/27/20 05/07/20 Rx Patient hx anesthesia problems: none Family hx anesthesia problems: none PMFSH Past Medical History Medical History Degenerative joint disease of knee Dyslipidemia HTN (hypertension) Hypothyroidism Left knee pain Vision abnormalities Surgical History Surgical History History of total left knee replacement (~08/2019) Family History Family History Father Hypertension Carcinoma of colon Mother Cerebrovascular accident Diabetes mellitus CHF (congestive heart failure) Other Family history of arthritis Social History Social History Social History: Patient lives at home alone. 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 Her PCP is Dr. Thompson (her previous is Dr. Palomo). She wishes to be a Full Code. She designates her sister, Tyree Prather, as her surrogate MDM Smoking packs per day: 0.3 Smoking cigarettes per day: 6.0 Years smoked: 25 Smoking pack-years: 7.50 Smoking status: Former smoker Tobacco type: cigarettes Second hand tobacco smoke exposure: Yes Alcohol intake: current Drinks per week: 10 Alcohol use details: WINE Substance use: never Substance use type: does not use Living arrangements: alone Gender identity (if verbalized by the patient): Female Spiritual care concerns: No Agree to blood products: Yes Anes - Eval Final PreProcedure Day of Procedure 05/13/20 07:02 Patient weight: normal Heart: regular rate and rhythm Lungs: clear to auscultation Airway: Mallampati scale class II Neurological: alert and oriented Last oral intake: >/= 8 hours ASA classification: II Emergent: no Anesthetic plan: proceed Anesthesia type and monitoring: general GIVS and standard monitoring Informed Consent: The patient's anesthetic plan and its attendant risks and benefits were discussed with the patient/family/POA. Questions were solicited and answers provided to the satisfaction of the patient/family/POA.
--- NOTE | 2020-05-13 07:12 | PM.HPGS ---
History of Present Illness History of Present Illness Consent: Risks, benefits, and alternatives have been discussed and questions answered. Patient agrees to proceed with procedure. Chief complaint: Neoplasm Screening , Anemia Narrative: Janis Kapoor is a 64 year old female [facility] Past Medical History Medical History (Updated 05/13/20 @ 07:13 by Micheal Lake MD) Degenerative joint disease of knee Dyslipidemia HTN (hypertension) Hypothyroidism Left knee pain Vision abnormalities Surgical History Surgical History History of total left knee replacement (~08/2019) Family History Family History Father Hypertension Carcinoma of colon Mother Cerebrovascular accident Diabetes mellitus CHF (congestive heart failure) Other Family history of arthritis Social History Social History Social History: Patient lives at home alone. 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 Her PCP is Dr. Thompson (her previous is Dr. Palomo). She wishes to be a Full Code. She designates her sister, Tyree Prather, as her surrogate MDM Smoking packs per day: 0.3 Smoking cigarettes per day: 6.0 Years smoked: 25 Smoking pack-years: 7.50 Smoking status: Former smoker Tobacco type: cigarettes Second hand tobacco smoke exposure: Yes Alcohol intake: current Drinks per week: 10 Alcohol use details: WINE Substance use: never Substance use type: does not use Living arrangements: alone Gender identity (if verbalized by the patient): Female Spiritual care concerns: No Agree to blood products: Yes Meds Home Medications and Allergies Home Medications Medication Instructions Recorded Confirmed Type One-A-Day Women's 50 Plus 1 tablet PO DAILY 08/19/19 05/07/20 History amlodipine 10 mg PO DAILY 08/19/19 05/07/20 History furosemide 20 mg PO DAILY 08/19/19 05/07/20 History levothyroxine 100 mcg PO DAILY 08/19/19 05/07/20 History naproxen sodium [Aleve] 440 mg PO PRN PRN 08/19/19 05/07/20 History simvastatin 10 mg PO DAILY 08/19/19 05/07/20 History aspirin 650 mg PO DAILY 14 Days #28 tablet 09/19/19 05/07/20 Rx tramadol 50 mg tablet 50 mg PO Q6H PRN 01/06/20 05/07/20 History amoxicillin 500 mg tablet 500 mg PO Q8H #8 tablet 04/27/20 05/07/20 Rx Allergies Allergy/AdvReac Type Severity Reaction Status Date / Time tetracycline Allergy Unknown Rash Verified 05/13/20 06:15 Vital Signs Vital Signs - 24 hr 05/13/20 06:16 Temperature 36.6 C Pulse Rate 82 Respiratory Rate 18 Blood Pressure 175/78 H Pulse Oximetry 97 Exam Resp: Auscultation: clear to auscultation bilaterally Cardio: Rate: regular rate Rhythm: regular rhythm GI: GI Palp: Yes Soft to palpation and No Tenderness to palpation present (GI) Assessment and Plan Assessment and plan (1) Anemia: Code(s): D64.9 - Anemia, unspecified Status: Acute Assessment and Plan: Colonoscopy with possible biopsy or polypectomy or cautery or injection of substances.EGD with possible biopsy or dilatation or cautery.
[2020-05-13 08:02] VITALS: BP 99/60; PULSE 87; RESP 24; O2SAT 95
[2020-05-13 08:12] VITALS: BP 97/59; PULSE 83; RESP 16; O2SAT 97
[2020-05-13 08:22] VITALS: BP 134/73; PULSE 69; RESP 13; O2SAT 97
== END 2020-05-13 08:48 | disposition home or self-care (01) ==
PROVIDERS: Visit Provider Internal Medicine Gastroenterology
PROC: 0DJ08ZZ Inspection of Upper Intestinal Tract, Via Natural or Artificial Opening Endoscopic (ICD-10-PCS; CPT 43235; principal; 2020-05-13 07:30)
DX: Z12.11 Encounter for screening for malignant neoplasm of colon (principal); D12.3 Benign neoplasm of transverse colon; K62.1 Rectal polyp; Z80.0 Family history of malignant neoplasm of digestive organs; K21.9 Gastro-esophageal reflux disease without esophagitis; K26.9 Duodenal ulcer, unspecified as acute or chronic, without hemorrhage or perforation; D64.9 Anemia, unspecified; I10 Essential (primary) hypertension; E78.5 Hyperlipidemia, unspecified; E03.9 Hypothyroidism, unspecified; Z79.82 Long term (current) use of aspirin; Z87.891 Personal history of nicotine dependence
CPT/HCPCS: 45380; 45385; 43239; 87081; 88305; J0290; J2001; J2704; J7120

== ENCOUNTER 2022-10-10 11:38 | Outpatient (CLI) | payer MEDICARE, OTHER, SELFPAY ==
--- NOTE | 2022-10-10 12:41 | ECG_ITS ---
Measurements Intervals [place] Rate: 65 P: 53 TN: 133 QRS: 21 QRSD: 89 T: 42 QT: 406 QTc: 423 Interpretive Statements SINUS RHYTHM NORMAL ECG NO PREVIOUS ECG AVAILABLE FOR COMPARISON Electronically Signed On 10-10-2022 13:01:37 CDT by John Abraham D.O.
[2022-10-10 12:51] LABS: Basophils Absolute Auto 0.1 K/mm3 (0.0-0.1); Basophils Percent Auto 0.9 % (0.2-1.2); Eosinophils Absolute Auto 0.2 K/mm3 (0-0.3); Eosinophils Percent Auto 2.3 % (0-4.4); Hematocrit 34.8 % (37.0-47.0); Hemoglobin 11.1 g/dL (12.0-15.0); Immature Granulocyte Absolute 0.03 K/mm3 (0.00-0.031); Immature Granulocyte Percent A 0.4 % (0-0.5); Lymphocytes Absolute Auto 2.31 K/mm3 (0.9-3.2); Lymphocytes Percent Auto 28.3 % (18.3-44.2); Mean Corpuscular HGB Conc 31.9 g/dl (32-36); Mean Corpuscular Hemoglobin 24.4 pg (26-34); Mean Corpuscular Volume 76.7 fl (80-100); Mean Platelet Volume 10.9 fl (7.4-10.4); Monocytes Absolute Auto 0.8 K/mm3 (0.1-0.6); Monocytes Percent Auto 9.4 % (2.6-8.5); Neutrophils Absolute Auto 4.8 K/mm3 (1.3-6.7); Neutrophils Percent Auto 58.7 % (45.5-73.1); Platelet Count Result 249 k/mm3 (150-375); Red Blood Count 4.54 M/mm3 (4.2-5.4); Red Cell Distribution Width 15.9 % (11.5-14.5); White Blood Count 8.2 K/mm3 (4.5-10.0)
[2022-10-10 12:57] LABS: Appearance Urine Clear (Clear); Bacteria Urine None Seen /hpf; Bilirubin Urine Negative (Negative); Blood Urine Negative (Negative); Color Urine Yellow (Yellow); Glucose Urine UA Negative (Negative); Ketones Urine Negative (Negative); Leukocyte Esterase Ur Trace LEU/UL (Negative); Nitrate Urine Negative (Negative); Non Pathogenic Casts 0-2; Protein Urine Negative (Negative); RBC Urine 0-2 /hpf (0-2); Specific Grav Ur 1.005 (1.001-1.035); Squamous Epithelial Cell Urine None seen /hpf (Few); Urobilinogen Urine 0.2 mg/dL (<2.0); WBC Urine 0-5 /hpf; pH Urine 6.5 (5.0-9.0)
[2022-10-10 13:06] LABS: Chloride 103 mmol/L (98-107)
[2022-10-10 13:16] LABS: Anion Gap 8 mmol/L (8-16); Blood Urea Nitrogen 12 mg/dL (7-17); Calcium 9.5 mg/dL (8.4-10.2); Carbon Dioxide 28 mmol/L (22-30); Estimated Glomerular Filt Rate > 60; Glucose 94 mg/dL (65-110); Potassium 3.9 mmol/L (3.4-5.0); Sodium 139 mmol/L (137-145)
[2022-10-10 13:52] LABS: Add Urine Microscopic? YES
== END 2022-10-10 11:39 | disposition home or self-care (01) ==
PROVIDERS: PCP Family Medicine Sports Medicine; Visit Provider Orthopaedic Surgery
DX: M17.11 Unilateral primary osteoarthritis, right knee (principal); I10 Essential (primary) hypertension
CPT/HCPCS: 36415; 80048; 81001; 85025; 93005

== ENCOUNTER 2022-10-25 07:39 | Outpatient (CLI) | payer MEDICARE, OTHER, SELFPAY ==
[2022-10-25 09:16] LABS: Urine Cotinine NEGATIVE
[2022-10-25 09:17] LABS: Appearance Urine Clear (Clear); Bilirubin Urine Negative (Negative); Blood Urine Negative (Negative); Color Urine Yellow (Yellow); Glucose Urine UA Negative (Negative); Ketones Urine Negative (Negative); Leukocyte Esterase Ur Negative LEU/UL (Negative); Nitrate Urine Negative (Negative); Protein Urine Negative (Negative); Specific Grav Ur 1.004 (1.001-1.035); Urobilinogen Urine 0.2 mg/dL (<2.0)
[2022-10-25 09:20] LABS: Prothrombin Time 13.1 Seconds (11.1-14.7)
[2022-10-25 09:21] LABS: Partial Thromboplastin Time 25.6 SECONDS (22.3-36.8)
[2022-10-25 09:23] LABS: Add Urine Microscopic? NO
== END 2022-10-25 07:40 | disposition home or self-care (01) ==
PROVIDERS: PCP Family Medicine Sports Medicine; Visit Provider Orthopaedic Surgery
DX: M17.11 Unilateral primary osteoarthritis, right knee (principal); Z01.818 Encounter for other preprocedural examination
CPT/HCPCS: 80307; 81003; 82040; 83036; 85610; 85730; 87081

== ENCOUNTER 2022-11-08 00:52 | Day surgery (SDC) | payer MEDICARE, OTHER, SELFPAY ==
[2022-10-25 08:09] VITALS: BP 133/63; PULSE 62; RESP 16; TEMP 36.7; O2SAT 100; BMI 35.7
--- NOTE | 2022-10-25 08:19 | PC.NURSE ---
Report to the Outpatient Waiting Room, entrance under the green pavilion located off [facility], at time __8:30AM on date __11/08/22 . Planned Procedure Time: __10:30AM . Time changes happen often and if your time is changed the preop area will call you the afternoon before. - You and your visitor will be asked to self-screen and do not enter if you have any COVID symptoms. - Only one visitor is requested with a max of two and NO children visitors are allowed at this time. - The patient visitor may be requested to leave or wait in car when not with patient due to distancing restrictions. - A mask is optional within the hospital at this time. Patients may have clear liquids (water, carbonated beverages, clear teas, apple juice) until 3 hours prior to surgery with a maximum of 20 ounces. - No food from midnight until time of surgery Take the following medications with a SIP of water the morning of surgery: ____AMLODIPINE, LEVOTHYROXINE DO NOT STOP ANY OF YOUR OTHER PRESCRIPTION MEDICATIONS PRIOR TO SURGERY ?EXCEPT THE FOLLOWING Medications to discontinue per physician ___HOLD ALL VITAMINS/SUPPLEMENTS FOR 7 DAYS PRE-OP PER DR ALEXANDRA(PER PATIENT) Date to take last dose____11/01/22 Please no make-up, nail czech, hairspray, perfume, deodorant, or body powder the day of surgery. No jewelry (including any body piercings) or valuables the day of surgery, leave them at home. Please take a shower or bath the night before, or the morning of, surgery with an antibacterial soap. Wear comfortable, loose fitting clothing. Children are encouraged to wear pajamas. - Jewelry must be removed prior to entering the operating room. Rings and piercings that are not removed may be cut off. - The hospital will not accept responsibility for valuables. - Please leave all valuables, including medications, at home the day of surgery. If you are going home after surgery, a licensed emergency medical technician/driver must drive you home. - NO public transportation without another adult if you receive anesthesia. - We recommend that an adult stay with you for 24 hours following discharge. - We also recommend that you do not drive, make important decision, drink alcoholic beverages, or take any drugs that were not prescribed by your health care provider for at least 24 hours after your discharge time. Follow any additional instructions given to you from your surgeon. If you or anyone in your household have experienced Covid symptoms in the past week, please notify your surgeon or the nurse liaison at the phone number below for possible testing. Telephone instructions given to __PATIENT and asked if any additional questions and then verbalized understanding. Patient advised to call surgeon office or pre surgery nurse liaison [phone] if any additional questions.
--- NOTE | 2022-11-07 13:29 | WPDANESEPPF ---
Anes - Initial Pre Proc Eval Procedure: Operation Date: 11/08/22 07:30 Proposed Procedures p Right Total Knee Arthroplasty - Prasanna Ramos MD Date/Time: 11/07/22 13:29 Surgeon: Prasanna Ramos MD Pre Op Diagnosis: Right knee djd Patient Data Age: 67 Gender: F Height: 1.54 m Weight: 85.2 kg Last Vital Signs Temp 36.7 C 10/25/22 08:09 Pulse 62 10/25/22 08:09 Resp 16 10/25/22 08:09 BP 133/63 10/25/22 08:09 Pulse Ox 100 10/25/22 08:09 O2 Del Method Room Air 10/25/22 08:09 Allergies Allergy/AdvReac Type Severity Reaction Status Date / Time tetracycline Allergy Unknown Rash Verified 11/08/22 06:10 Home Medications Medication Instructions Recorded Confirmed Type amlodipine 10 mg tablet 10 mg PO QAM 08/19/19 11/08/22 History furosemide 20 mg tablet 20 mg PO QA 08/19/19 11/08/22 History levothyroxine 100 mcg capsule 100 mcg PO QAM 08/19/19 11/08/22 History calcium 600 mg capsule 600 mg PO BID 10/25/22 11/08/22 History cholecalciferol (vitamin D3) 1,250 1,250 mcg PO WEEKLY 10/25/22 11/08/22 History mcg (50,000 unit) capsule ferrous sulfate 325 mg (65 mg 65 mg PO EVERY OTHER DAY 10/25/22 11/08/22 History iron) capsule,extended release lisinopril 20 mg tablet 20 mg PO QAM 10/25/22 11/08/22 History omega 2-wes-ecj-fish oil 900 1 cap PO EVERY OTHER DAY 10/25/22 11/08/22 History mg-1,400 mg capsule,delayed release (Fish Oil) omeprazole 40 mg capsule,delayed 40 mg PO BID 10/25/22 11/08/22 History release simvastatin 40 mg tablet 40 mg PO DAILY 10/25/22 11/08/22 History chlorhexidine gluconate 4 % 1 applic topical ONCE #237 mL 10/27/22 11/08/22 Rx topical liquid (Hibiclens) Patient hx anesthesia problems: none Family hx anesthesia problems: none Results Review: All pre-operative results and documents have been reviewed as part of the pre-operative evaluation. [facility] Past Medical History Medical History (Updated 11/08/22 @ 06:26 by Dax Ponce DO) Degenerative joint disease of knee Dyslipidemia History of anemia History of osteoporosis pre osteoporosis HTN (hypertension) Hypothyroidism Left knee pain Vision abnormalities Surgical History Surgical History History of total left knee replacement (~08/2019) Family History Family History Father Hypertension Carcinoma of colon Mother Cerebrovascular accident Diabetes mellitus CHF (congestive heart failure) Other Family history of arthritis Social History Social History Social History: Patient lives at home alone. 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 Her PCP is Dr. Thompson (her previous is Dr. Palomo). She wishes to be a Full Code. She designates her sister, Tyree Prather, as her surrogate MDM Smoking packs per day: 0.3 Smoking cigarettes per day: 6.0 Years smoked: 20 Smoking pack-years: 6.00 Smoking status: Former smoker Tobacco type: cigarettes Second hand tobacco smoke exposure: Yes Smoking end date: 06/23/19 Alcohol intake: current Drinks per week: 14 Alcohol use details: WINE Substance use: never Substance use type: does not use Living arrangements: with family Additional living arrangements comments: HUSB Gender identity (if verbalized by the patient): Female Spiritual care concerns: No Agree to blood products: Yes Anes - Eval Final PreProcedure Day of Procedure 11/07/22 13:29 Patient weight: obese Heart: regular rate and rhythm Lungs: clear to auscultation Airway: Mallampati scale class II Neurological: alert and oriented Last oral intake: >/= 8 hours ASA classification: III Emergent: no Anesthetic plan: proceed Anesthesia type and monitoring: general LMA and standard monitoring Results Review: All pre-operative results and documents have
[2022-11-08] VITALS (13 sets, daily range): BP systolic 107–163; BP diastolic 66–95; PULSE 72–101; RESP 10–20; TEMP 36.2–36.4; O2SAT 96–100
--- NOTE | ~2022-11-08 | XR_ITS ---
Right Knee Technique: Portable AP and crosstable lateral views Clinical History: Status post TKR Findings: Patient is status post total knee replacement. Orthopedic hardware alignment appears anatom ic. No hardware complication is evident. Subcutaneous emphysema and swelling is likely postoperative in nature. No acute osseous fracture is seen. Impression: Status post total knee replacement, without evidence of hardware complication. Reviewed, dictated and finalized at location . Impression: Status post total knee replacement, without evidence of hardware complication.
[2022-11-08] MEDS: ACETAMINOPHEN 500 MG TABLET 1000 MG PO (06:20)
--- NOTE | 2022-11-08 06:26 | WPDANESPNB ---
Anes - Peripheral Nerve Block Date/Time: 11/08/22 06:26 I have discussed with the patient/family/POA the placement of a peripheral nerve block for post-operative pain management, including associated risks, benefits, complications, and side effects. Alternative methods of post-operative analgesia were detailed. Questions were solicited and answers provided to the satisfaction of the patient/family/POA. Time-Out: A pre-procedural Time-Out was completed immediately before starting the procedure and confirmed: Patient Identification, Site, Procedure, Patient Position and the Availability of Requisite Equipment. Clinical Indications: Acute post-operative pain management requested by the operative surgeon. Nerve Block Insertion Note Anes-nerve block: adductor canal right Patient position: supine Skin prep: chlorhexidine Needle: 22 gauge, stimulating, insulated echogenic needle. Needle length: 80 mm Technique: ultrasound Injectate: bupivacaine 0.5% with epi 5 mcg/ml (30cc - no epi) Observations: tolerated well Complications: none Procedure start time:: 723 Procedure end time:: 727
[2022-11-08] MEDS: LACTATED RINGERS 1,000 ML 30 ML IV CONT ×2 (06:35→09:51)
[2022-11-08] MEDS: TRANEXAMIC ACID 1,000MG/ISO100 1,000 MG/100 ML BAG 200 MG IVPB (07:16)
--- NOTE | 2022-11-08 07:19 | WPDHPUPDATE1 ---
History and Physical Update Update Date/Time: 11/08/22 07:19 History and Physical has been reviewed, including an updated exam of the patient. There are NO changes in the patient's condition. Risks, benefits, and alternatives have been discussed and questions answered. Patient agrees to proceed with procedure.
[2022-11-08] MEDS: ceFAZolin 2 GM/D5W 50 ML 2 GM/50 ML BAG IVPB ×3 (07:32→23:11)
--- NOTE | 2022-11-08 10:02 | W.PM.PROC2 ---
Procedure Note - Detailed Date of Procedure 11/08/22 Pre-op Diagnosis Right knee djd Post-op Diagnosis Same Procedure Performed R TKA Surgeon Prasanna Ramos MD Anesthesia General Description of Procedure THE RIGHT KNEE WAS PREPPED AND DRAPED IN THE STERILE FASHION. A MIDLINE SKIN INCISION WAS MADE. A MEDIAL PARAPATELLAR ARTHROTOMY WAS MADE. THE PATELLA WAS EVERTED. THERE WAS TRICOMPARTMENT DJD. THERE WAS MINIMAL PATELLA DJD. AN INTRAMEDULLARY VEGA WAS PLACED IN THE FEMUR. A DISTAL FEMORAL CUT WAS MADE IN 5 DEGREES OF VALGUS REMOVING APPROXIMATELY 9 MM OF BONE FROM THE DISTAL FEMUR. THE FEMUR WAS SIZED TO 65. A 65 FEMORAL CUTTING BLOCK WAS PLACED IN 3 DEGREES OF EXTERNAL ROTATION AND IN ALIGNMENT WITH LIBRA'S LINE AND THE TRANSEPICONDYLAR AXIS. ANTERIOR POSTERIOR AND CHAMFER CUTS WERE MADE. THE CUTS WERE EXCELLENT. NEXT AN INTRAMEDULLARY CUTTING GUIDE WAS PLACED IN THE TIBIA. A TRANS TIBIAL CUT WAS MADE ALONG THE LONG AXIS OF THE TIBIA. APPROXIMATELY 10 MM OF BONE WAS REMOVED FROM THE HIGH SIDE OF THE TIBIA. THE TIBIA WAS THEN PLANED TO A SMOOTH SURFACE. POSTERIOR FEMORAL OSTEOPHYTES WERE REMOVED FROM THE FEMORAL CONDYLES. A 67 TIBIAL TRIAL WAS PLACED IN ALIGNMENT WITH THE 1/3 MEDIAL ASPECT OF THE TIBIAL TUBERCLE. THEN A 65 FEMORAL TRIAL COMPONENT WAS PLACED. BOTH HAD EXCELLENT FITS. EVENTUALLY A 10 MM CR POLYETHYLENE TRIAL COMPONENT WAS PLACED. THE KNEE WAS TAKEN THROUGH A RANGE OF MOTION. THE KNEE CAME OUT TO FULL EXTENSION. THERE WAS NO ABNORMAL TILT TO THE PATELLA. THERE WAS GOOD A/P AND VARUS/VALGUS STABILITY. THERE WAS NO EXCESSIVE ROLL BACK WITH FLEXION. THE TRIAL COMPONENTS WERE REMOVED. THEN A 65 FEMORAL COMPONENT AND 67 TIBIAL COMPONENT WITH A 10 CR POLYETHYLENE COMPONENT WERE CEMENTED INTO PLACE. ONCE THE CEMENT WAS HARD THE KNEE WAS TAKEN THROUGH A ROM AGAIN AND FOUND TO BE STABLE WITH NO PATELLA TILT NO EXCESSIVE ROLL BACK WITH FLEXION AND GOOD STABILITY WITH COMPLETE AND FULL EXTENSION. THE KNEE WAS IRRIGATED WITH STERILE BETADINE AND WATER FOR ABOUT 3 MINUTES. THE BLEEDERS WERE CAUTERIZED. THE ARTHROTOMY WAS REPAIRED WITH NUMBER 1 VICRYL. THE SUB CUTANEOUS LAYER WITH 2-0 VICRYL AND THE SKIN WITH ZAN. THE WOUND WAS WASHED AND A STERILE DRESSING WAS APPLIED. PATIENT WAS EXTUBATED. Estimated Blood Loss -100 Pathology None sent Complications No immediate complications Condition Stable Disposition PACU
[2022-11-08] MEDS: fentaNYL CITRATE INJ (*CRX) 100 MCG/2 ML VIAL 25 MCG IV PUSH ×2 (10:14→10:22)
--- NOTE | 2022-11-08 10:58 | SUR.PHASEI ---
1050-update given to Dr. Ponce-nikolas to transfer to room. Dr. Ramos here and aware.
--- NOTE | 2022-11-08 11:24 | ADMGEN ---
This patient, Janis Patel, was admitted to 2 Medical Room 240-01. Patient/family oriented to hospital policies and general routines including ID bracelet, bed and alarms, visiting hours, pain management, procedures, bathroom and other care routines, personal items, smoking policy, room service/diet, and visiting hours. Information on how to activate the Rapid Response Team has been discussed. Patient/Family are encouraged to report perceived risks to care and to ask questions if they do not understand what they are told or what they should do.
[2022-11-08] MEDS: SODIUM CHLORIDE 0.9% IV 1,000 ML 125 ML IV CONT (11:40)
[2022-11-08] MEDS: CALCIUM CARBONATE (OSCAL) 500 MG TABLET PO ×2 (11:45→17:34)
[2022-11-08] MEDS: SENNA/DOCUSATE SODIUM TABLET 2 TAB PO ×2 (11:45→17:34)
[2022-11-08] MEDS: lisinopriL 20 MG TABLET PO (11:45)
[2022-11-08] MEDS: FUROSEMIDE 20 MG TABLET PO (11:45)
[2022-11-08] MEDS: ASPIRIN 325 MG ENTERIC TABLET PO ×2 (11:45→21:06)
[2022-11-08] MEDS: KETOROLAC 15 MG/ML VIAL (*BKC) IV PUSH ×3 (11:45→23:10)
[2022-11-08] MEDS: polyethylene glycoL 3350 17 GM POWD.PACK PO (11:46)
[2022-11-08] MEDS: SIMVASTATIN 20 MG TABLET 40 MG PO (11:46)
[2022-11-08] MEDS: PANTOPRAZOLE 40 MG TABLET PO ×2 (11:46→17:36)
[2022-11-08] MEDS: oxyCODONE/ACETAMINOPHEN (*CRX) 5-325 MG TABLET 2 TABLET PO ×2 (15:07→21:06)
[2022-11-08] MEDS: FERROUS SULFATE 324 MG TABLET PO (15:07)
[2022-11-09 01:03] VITALS: BP 103/57; PULSE 76; RESP 20; TEMP 36.3; O2SAT 98
[2022-11-09 04:47] VITALS: BP 110/59; PULSE 66; RESP 20; TEMP 36.1; O2SAT 99
[2022-11-09 05:34] LABS: Basophils Percent Auto 0.3 % (0.2-1.2); Hematocrit 27.4 % (37.0-47.0); Hemoglobin 8.6 g/dL (12.0-15.0); Immature Granulocyte Absolute 0.07 K/mm3 (0.00-0.031); Immature Granulocyte Percent A 0.5 % (0-0.5); Lymphocytes Absolute Auto 1.53 K/mm3 (0.9-3.2); Lymphocytes Percent Auto 10.7 % (18.3-44.2); Mean Corpuscular HGB Conc 31.4 g/dl (32-36); Mean Corpuscular Hemoglobin 24.4 pg (26-34); Mean Corpuscular Volume 77.8 fl (80-100); Mean Platelet Volume 11.2 fl (7.4-10.4); Monocytes Absolute Auto 1.3 K/mm3 (0.1-0.6); Monocytes Percent Auto 9.1 % (2.6-8.5); Neutrophils Absolute Auto 11.4 K/mm3 (1.3-6.7); Neutrophils Percent Auto 79.4 % (45.5-73.1); Platelet Count Result 233 k/mm3 (150-375); Red Blood Count 3.52 M/mm3 (4.2-5.4); Red Cell Distribution Width 15.8 % (11.5-14.5); White Blood Count 14.4 K/mm3 (4.5-10.0)
[2022-11-09 05:37] LABS: Anion Gap 8 mmol/L (8-16); Blood Urea Nitrogen 14 mg/dL (7-17); Calcium 8.7 mg/dL (8.4-10.2); Carbon Dioxide 27 mmol/L (22-30); Chloride 93 mmol/L (98-107); Estimated CRCL calculation 58 ml/min; Estimated Glomerular Filt Rate > 60; Glucose 120 mg/dL (65-110); Sodium 128 mmol/L (137-145)
[2022-11-09] MEDS: KETOROLAC 15 MG/ML VIAL (*BKC) IV PUSH ×2 (06:14→12:39)
[2022-11-09] MEDS: LEVOTHYROXINE SODIUM 100 MCG TABLET PO (06:14)
[2022-11-09] MEDS: ceFAZolin 2 GM/D5W 50 ML 2 GM/50 ML BAG IVPB (06:14)
[2022-11-09] MEDS: amLODIPine BESYLATE 5 MG TABLET 10 MG PO (08:03)
[2022-11-09 08:04] VITALS: BP 106/65; PULSE 63; RESP 16; TEMP 36.3; O2SAT 98
[2022-11-09] MEDS: polyethylene glycoL 3350 17 GM POWD.PACK PO (08:04)
[2022-11-09] MEDS: CALCIUM CARBONATE (OSCAL) 500 MG TABLET PO (08:04)
[2022-11-09] MEDS: FUROSEMIDE 20 MG TABLET PO (08:04)
[2022-11-09] MEDS: ASPIRIN 325 MG ENTERIC TABLET PO (08:04)
[2022-11-09] MEDS: PANTOPRAZOLE 40 MG TABLET PO (08:04)
[2022-11-09] MEDS: SENNA/DOCUSATE SODIUM TABLET 2 TAB PO (08:04)
[2022-11-09] MEDS: SIMVASTATIN 20 MG TABLET 40 MG PO (08:04)
[2022-11-09] MEDS: lisinopriL 20 MG TABLET PO (08:04)
--- NOTE | 2022-11-09 08:13 | PCPTNOTE ---
Attempted to see patient for PT, however patient was eating breakfast.
[2022-11-09] MEDS: oxyCODONE/ACETAMINOPHEN (*CRX) 5-325 MG TABLET 2 TABLET PO ×2 (09:03→15:42)
--- NOTE | 2022-11-09 11:23 | PM.PNORT ---
Progress Note: A&P Assessment and Plan (1) Degenerative joint disease of knee: Qualifiers: Osteoarthritis type: primary Laterality: right Qualified Code(s): M17.11 - Unilateral primary osteoarthritis, right knee Code(s): M17.10 - Unilateral primary osteoarthritis, unspecified knee Status: Acute Assessment and Plan: POD 1 DOING WELL. OK TO DC HOME AFTER PT. SHE WILL F/U IN 3 WEEKS. Subjective Subjective Date/Time Seen: 11/09/22 11:23 POD 1 DOING WELL. NO CHEST PAIN OR SOB. NO CALF PAIN Exam Extrem: Other: VSS AFEBRILE DRESSING DRY NV INTACT NEG HOMANS SIGN, CALF SOFT NON TENDFER, THIGH SOFT NON TENDER Objective Data Vital Signs Vital Signs: Vital Signs - 24 hr 11/08/22 12:47 11/08/22 13:29 11/08/22 14:15 Temperature Pulse Rate Respiratory Rate Blood Pressure Pulse Oximetry 96 Oxygen Delivery Room Air Room Air Room Air 11/08/22 11:47 11/08/22 12:47 11/08/22 16:47 Temperature 36.4 C Pulse Rate 81 88 79 Respiratory Rate 12 16 16 Blood Pressure 146/71 H 146/70 H 114/67 Pulse Oximetry 100 99 96 Oxygen Delivery 11/08/22 20:47 11/09/22 01:03 11/09/22 04:47 Temperature 36.3 C L 36.3 C L 36.1 C L Pulse Rate 80 76 66 Respiratory Rate 20 20 20 Blood Pressure 107/66 103/57 L 110/59 L Pulse Oximetry 98 98 99 Oxygen Delivery 11/09/22 08:04 11/09/22 08:04 Temperature 36.3 C L Pulse Rate 63 Respiratory Rate 16 Blood Pressure 106/65 Pulse Oximetry 98 Oxygen Delivery Room Air Intake/Output Intake/Output: Intake & Output 11/06/22 11/07/22 11/08/22 11/09/22 23:59 23:59 23:59 23:59 Intake Total 2910 690 Output Total 600 Balance 2910 90 Meds/Results Medications: Active Medications Generic Name Dose Route Start Last Admin Trade Name Freq PRN Reason Stop Dose Admin Acetaminophen 1,000 mg 11/08/22 11:02 Acetaminophen 500 Mg Tablet PO Q6H PRN Pain Rated 1-3 Amlodipine Besylate 10 mg 11/08/22 11:02 11/09/22 08:03 Amlodipine Besylate 5 Mg Tablet PO 10 mg QAM [facility] Administration Aspirin 325 mg 11/08/22 11:02 11/09/22 08:04 Aspirin 325 Mg Enteric Tablet PO 325 mg Q12HR [facility] Administration Calcium Carbonate 500 mg 11/08/22 11:02 11/09/22 08:04 Calcium Carbonate (Oscal) 500 Mg Tablet PO 12/08/22 11:01 500 mg BID [facility] Administration Diazepam 5 mg 11/08/22 11:02 Diazepam (*Crx) 5 Mg Tablet PO Q8H PRN Spasms Diphenhydramine HCl 25 mg 11/08/22 11:02 Diphenhydramine Hcl Inj 50 Mg/Ml Vial IV PUSH Q6H PRN Itching Ergocalciferol 50,000 units 11/11/22 09:00 Ergocalciferol 50,000 Units Capsule PO Fr@0900 [facility] Ferrous Sulfate 324 mg 11/08/22 09:00 11/08/22 15:07 Ferrous Sulfate 324 Mg Tablet PO 324 mg Q48HR [facility] Administration Furosemide 20 mg 11/08/22 11:02 11/09/22 08:04 Furosemide 20 Mg Tablet PO 20 mg QAM [facility] Administration Ketorolac Tromethamine 15 mg 11/08/22 12:00 11/09/22 06:14 Ketorolac 15 Mg/Ml Vial (*Bkc) IV PUSH 11/09/22 12:01 15 mg Q6HR [facility] Administration Levothyroxine Sodium 100 mcg 11/09/22 06:30 11/09/22 06:14 Levothyroxine Sodium 100 Mcg Tablet PO 100 mcg DAILY@0630 [facility] Administration Lisinopril 20 mg 11/08/22 11:02 11/09/22 08:04 Lisinopril 20 Mg Tablet PO 20 mg QAM [facility] Administration Naloxone HCl 0.1 mg 11/08/22 11:02 Naloxone Hcl 0.4 Mg/Ml Vial IV PUSH Q2M PRN Opiate Reversal Ondansetron HCl 4 mg 11/08/22 11:02 Ondansetron Inj 4 Mg/2 Ml Vial IV PUSH Q4H PRN Nausea And Vomiting Oxycodone/Acetaminophen 1 tablet 11/08/22 11:02 Oxycodone/Acetaminophen (*Crx) 5-325 Mg Tablet PO Q4H PRN Pain Rated 4-6 Oxycodone/Acetaminophen 2 tablet 11/08/22 11:02 11/09/22 09:03 Oxycodone/Acetaminophen (*Crx) 5-325 Mg Tablet PO 2 tablet Q6H PRN Administration Pain Rated 7-10 Pantoprazole Sodium 40 mg 11/08/22 11:02
--- NOTE | 2022-11-09 11:46 | PM.DS ---
DS: Admitting Diagnosis Discharge Date 09/11/22 Admitting Diagnosis RIGHT KNEE DJD DS: Discharge Diagnosis Discharge Diagnosis (1) Degenerative joint disease of knee: Qualifiers: Osteoarthritis type: primary Laterality: right Qualified Code(s): M17.11 - Unilateral primary osteoarthritis, right knee Code(s): M17.10 - Unilateral primary osteoarthritis, unspecified knee Status: Acute DS: Summary Hospital Course Reason for hospitalization: RIGHT TKA Hospital Course: PATIENT WAS ADMITTED S/P TOTAL KNEE ARTHROPLASTY FOR POSTOPERATIVE MEDICAL MANAGEMENT, PAIN CONTROL AND MOBILIZATION WITH PHYSICAL AND OCCUPATIONAL THERAPY. THE PATIENT PROGRESSED WELL WITH PT/OT. LABS AND VITALS REMAINED STABLE AND PAIN WELL CONTROLLED. THE PATIENT HAS BEEN CLEARED TO BE DISCHARGED HOME. FOLLOW UP APPOINTMENT SCHEDULED. DISCHARGE INSTRUCTIONS DISCUSSED AT LENGTH WITH THE PATIENT. MEDICATIONS REVIEWED. Status at Discharge Cognitive/behavioral status at discharge: STABLE Functional status at discharge: uses cane/walker Time Spent with Patient Time attestation: Total time spent providing and/or coordinating discharge services: DS: Data Data Completed and Pending Labs on day of discharge: Labs from last 24 hours 11/09/22 11/09/22 04:48 04:48 WBC 14.4 H RBC 3.52 L Hgb 8.6 L Hct 27.4 L MCV 77.8 L MCH 24.4 L MCHC 31.4 L RDW 15.8 H Plt Count 233 MPV 11.2 H Immature Gran % (Auto) 0.5 Neut % (Auto) 79.4 H Lymph % (Auto) 10.7 L [place] % (Auto) 9.1 H Eos % (Auto) 0.0 Baso % (Auto) 0.3 Lymph # (Auto) 1.53 [place] # (Auto) 1.3 H Eos # (Auto) 0.0 Baso # (Auto) 0.0 Abs Immat Gran (auto) 0.07 H Absolute Neuts (auto) 11.4 H Absolute Nucleated RBC 0.0 Nucleated RBC % 0.0 Sodium 128 L Potassium 4.0 Chloride 93 L Carbon Dioxide 27 Anion Gap 8 BUN 14 Creatinine 0.80 Estim Creat Clear Calc 58 Estimated GFR > 60 Glucose 120 H Calcium 8.7 Discharge Plan Discharge Patient Disposition: Home, Self-Care Discharge Instructions: MAURA RAMOS M.D. [facility] [address] [place] [address] POST OPERATIVE DISCHARGE INSTRUCTIONS FOLLOWING TOTAL KNEE REPLACEMENT SURGERY ? Your dressing will be changed prior to your discharge. You will be sent home with one additional dressing to be changed on post op day 7 by the home health RN. Your celine will be removed on the 14th day after surgery and steri-strips will be placed. Please practice good hand hygiene and do not touch your incision in order to prevent infection. ? You may shower with your dressing but do not submerge in a bath tub. ? Do not drive or operate machinery until you are released by Dr. Ramos. ? Do not walk without a walker for any reason until you are released by Dr. Ramos. ? Continue to use your ice machine. Please use a towel or pillow case to protect your skin before applying your ice machine. ? Do NOT place a pillow under your knee. You may use a pillow from the calf down if needed. This will prevent a flexion contracture postoperatively. ? You may begin use of your CPM machine at home if you have been given one pre-operatively. DO NOT USE WHILE YOU ARE SLEEPING. ? Your first post op appointment was sent to you via mail preoperatively. If you have any questions or are unable to make your appointment, please contact our office for scheduling questions. ? Your medications have been sent to your pharmacy. You have been sent home with pain medication. We have also sent you with a stool softener as narcotics can cause constipation. Please keep this in mind during your postoperative recovery. If you are not experiencing regular bowel movements, please contact our office for further instruction. ? Please contact our office with any questions/concerns regarding your knee at [phone]. TAKE 2 ADULT ASP
[2022-11-09 12:47] VITALS: BP 121/58; PULSE 73; RESP 16; TEMP 36.3; O2SAT 94
== END 2022-11-09 15:50 | disposition home or self-care (01) ==
LOC: ANHSURGERY 05:49 → ANH2MED 11:04
PROVIDERS: PCP Family Medicine Sports Medicine; Visit Provider Orthopaedic Surgery
PROC: (CPT 27447; principal; 2022-11-08 07:30)
DX: M17.11 Unilateral primary osteoarthritis, right knee (principal); G89.18 Other acute postprocedural pain; I10 Essential (primary) hypertension; E03.9 Hypothyroidism, unspecified; E78.5 Hyperlipidemia, unspecified; E66.9 Obesity, unspecified; Z68.35 Body mass index [BMI] 35.0-35.9, adult
CPT/HCPCS: 27447; 64447; 36415; 73560; 80048; 85025; 86850; 86900; 86901; 97110; 97116; 97161; 97165; 97530; 97535; A9270; C1713; C1776; J0171; J0330; J0690; J1100; J1170; J1885; J2250; J2270; J2310; J2405; J2704; J2795; J3010; J7030; J7120

== ENCOUNTER 2025-04-25 01:51 | Day surgery (SDC) | payer MEDICARE, OTHER, SELFPAY ==
[2025-04-15 08:44] VITALS: BMI 34.2
[2025-04-25 09:33] VITALS: BP 154/62; PULSE 84; RESP 17; TEMP 36.3; O2SAT 99; BMI 33.3
[2025-04-25] MEDS: LACTATED RINGERS 1,000 ML 150 ML IV CONT (09:42)
--- NOTE | 2025-04-25 11:29 | WPDANESEPPF ---
Anes - Initial Pre Proc Eval Procedure: Operation Date: 04/25/25 11:00 Proposed Procedures p Screening Colonoscopy - Nathanael Roberto MD Date/Time: 04/25/25 11:29 Surgeon: Nathanael Roberto MD Pre Op Diagnosis: screening Patient Data Age: 69 Gender: F Height: 1.52 m Weight: 77.3 kg Last Vital Signs Temp 97.3 F L 04/25/25 09:33 Pulse 84 04/25/25 09:33 Resp 17 04/25/25 09:33 BP 154/62 H 04/25/25 09:33 Pulse Ox 99 04/25/25 09:33 O2 Del Method Room Air 04/25/25 09:33 Allergies Allergy/AdvReac Type Severity Reaction Status Date / Time tetracycline Allergy Unknown Rash Verified 04/25/25 09:30 codeine AdvReac rash Verified 04/25/25 09:30 sulfamethoxazole (From AdvReac Rash Verified 04/25/25 09:30 Sulfamethoxazole-Trimethoprim) trimethoprim (From AdvReac Rash Verified 04/25/25 09:30 Sulfamethoxazole-Trimethoprim) Home Medications ?Medication ?Instructions ?Recorded ?Confirmed ?Type amlodipine 10 mg tablet 10 mg PO QAM 08/19/19 04/25/25 History furosemide 20 mg tablet 20 mg PO QAM 08/19/19 04/25/25 History levothyroxine 100 mcg capsule 100 mcg PO QAM 08/19/19 04/25/25 History calcium 600 mg capsule 600 mg PO BID 10/25/22 04/25/25 History cholecalciferol (vitamin D3) 1,250 1,250 mcg PO WEEKLY 10/25/22 04/25/25 History mcg (50,000 unit) capsule ferrous sulfate 325 mg (65 mg 65 mg PO EVERY OTHER DAY 10/25/22 04/15/25 History iron) capsule,extended release lisinopril 20 mg tablet 20 mg PO QAM 10/25/22 04/25/25 History omega 4-dok-ses-fish oil 900 1 cap PO EVERY OTHER DAY 10/25/22 04/25/25 History mg-1,400 mg capsule,delayed release (Fish Oil) omeprazole 40 mg capsule,delayed 40 mg PO BID 10/25/22 04/25/25 History release simvastatin 40 mg tablet 40 mg PO DAILY 10/25/22 04/25/25 History amoxicillin 500 mg capsule 500 mg PO ONCE #4 caps 11/18/24 04/15/25 Rx alendronate 70 mg tablet 70 mg PO WEEKLY 04/15/25 04/15/25 History Patient hx anesthesia problems: none Family hx anesthesia problems: none Results Review: All pre-operative results and documents have been reviewed as part of the pre-operative evaluation. [facility] Past Medical History Medical History History of anemia History of osteoporosis pre osteoporosis Dyslipidemia Hypothyroidism Degenerative joint disease of knee HTN (hypertension) Vision abnormalities Left knee pain Surgical History Surgical History History of total left knee replacement (~08/2019) Family History Family History Father Hypertension Carcinoma of colon Mother Cerebrovascular accident Diabetes mellitus CHF (congestive heart failure) Other Family history of arthritis Social History Social History Social History: Patient lives at home alone. 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 Her PCP is Dr. Thompson (her previous is Dr. Palomo). She wishes to be a Full Code. She designates her sister, Tyree Prather, as her surrogate MDM Smoking packs per day: 0.3 Smoking cigarettes per day: 6.0 Years smoked: 20 Smoking pack-years: 6.00 Smoking status: Former smoker Tobacco type: cigarettes Second hand tobacco smoke exposure: Yes Smoking end date: 06/23/19 Alcohol intake: current Drinks per week: 14 Alcohol use details: WINE Substance use: never Substance use type: does not use Lack of Transportation: No Lack of Food: Never True Current Housing: I Have Housing Concerned About Future Housing: No Difficulty Paying Gas/Electric Bills: No Difficulty Paying for Meds: No Currently Unemployed: No Education: High School Diploma/GED Difficulty w/ Childcare or Family Care: No Living arrangements: with family Additional living arrangements comments: HUSB Gender identity (if verbalized by the patient): Female Spiritual care concerns: No Agree to blood products: Yes Anes - Eval Final PreProcedure Day of Procedure 04/25/25 11:29 Patient weight: obese Lungs: normal air movement Airway: Mallampati scale class II Neurological: alert and oriented Last oral intake: >/= 8 hours ASA classification: II Emergent: no Anesthetic plan: proceed Anesthesia type and monitoring: general GIVS and standard monitoring Results Review: All pre-operative results and documents have been reviewed as part of the pre-operative evaluation. HTN, hyperlipidemia, BMI 33. Informed Consent: The patient's anesthetic plan and its attendant risks and benefits were discussed with the patient/family/POA. Questions were solicited and answers provided to the satisfaction of the patient/family/POA.
--- NOTE | 2025-04-25 11:39 | PM.IMHP ---
H&P: HPI History of Present Illness Date/Time: 04/25/25 11:39 Chief Complaint: History of colon polyps Narrative: The patient has a history of colonic polyps, the last colonoscopy was 5 years ago. Review of Systems Review of Systems: All systems reviewed & are unremarkable except as noted in HPI and below PMFSH Past Medical History Medical History History of anemia History of osteoporosis pre osteoporosis Dyslipidemia Hypothyroidism Degenerative joint disease of knee HTN (hypertension) Vision abnormalities Left knee pain Surgical History Surgical History History of total left knee replacement (~08/2019) Family History Family History Father Hypertension Carcinoma of colon Mother Cerebrovascular accident Diabetes mellitus CHF (congestive heart failure) Other Family history of arthritis Social History Social History Social History: Patient lives at home alone. 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 Her PCP is Dr. Thompson (her previous is Dr. Palomo). She wishes to be a Full Code. She designates her sister, Tyree Prather, as her surrogate MDM Smoking packs per day: 0.3 Smoking cigarettes per day: 6.0 Years smoked: 20 Smoking pack-years: 6.00 Smoking status: Former smoker Tobacco type: cigarettes Second hand tobacco smoke exposure: Yes Smoking end date: 06/23/19 Alcohol intake: current Drinks per week: 14 Alcohol use details: WINE Substance use: never Substance use type: does not use Lack of Transportation: No Lack of Food: Never True Current Housing: I Have Housing Concerned About Future Housing: No Difficulty Paying Gas/Electric Bills: No Difficulty Paying for Meds: No Currently Unemployed: No Education: High School Diploma/GED Difficulty w/ Childcare or Family Care: No Living arrangements: with family Additional living arrangements comments: JASON Gender identity (if verbalized by the patient): Female Spiritual care concerns: No Agree to blood products: Yes Meds Home Medications and Allergies Home Medications ?Medication ?Instructions ?Recorded ?Confirmed ?Type amlodipine 10 mg tablet 10 mg PO QAM 08/19/19 04/25/25 History furosemide 20 mg tablet 20 mg PO QAM 08/19/19 04/25/25 History levothyroxine 100 mcg capsule 100 mcg PO QAM 08/19/19 04/25/25 History calcium 600 mg capsule 600 mg PO BID 10/25/22 04/25/25 History cholecalciferol (vitamin D3) 1,250 1,250 mcg PO WEEKLY 10/25/22 04/25/25 History mcg (50,000 unit) capsule ferrous sulfate 325 mg (65 mg 65 mg PO EVERY OTHER DAY 10/25/22 04/15/25 History iron) capsule,extended release lisinopril 20 mg tablet 20 mg PO QAM 10/25/22 04/25/25 History omega 3-rma-cbz-fish oil 900 1 cap PO EVERY OTHER DAY 10/25/22 04/25/25 History mg-1,400 mg capsule,delayed release (Fish Oil) omeprazole 40 mg capsule,delayed 40 mg PO BID 10/25/22 04/25/25 History release simvastatin 40 mg tablet 40 mg PO DAILY 10/25/22 04/25/25 History amoxicillin 500 mg capsule 500 mg PO ONCE #4 caps 11/18/24 04/15/25 Rx alendronate 70 mg tablet 70 mg PO WEEKLY 04/15/25 04/15/25 History Allergies Allergy/AdvReac Type Severity Reaction Status Date / Time tetracycline Allergy Unknown Rash Verified 04/25/25 09:30 codeine AdvReac rash Verified 04/25/25 09:30 sulfamethoxazole (From AdvReac Rash Verified 04/25/25 09:30 Sulfamethoxazole-Trimethoprim) trimethoprim (From AdvReac Rash Verified 04/25/25 09:30 Sulfamethoxazole-Trimethoprim) Vital Signs Vital Signs - 24 hr 04/25/25 09:33 Temperature 97.3 F L Pulse Rate 84 Respiratory Rate 17 Blood Pressure 154/62 H Pulse Oximetry 99 Oxygen Delivery Room Air Exam Const: General: cooperative and healthy appearing Resp: Effort & Inspection: normal respiratory effort and able to speak in complete sentences Auscultation: clear to auscultation bilaterally Cardio: Rate: regular rate Rhythm: regular rhythm GI: Inspection: normal to inspection GI Palp: No No hepatosplenomegaly present Auscultation: normal bowel sounds Rectal Exam: deferred Skin: General skin exam: normal color Psych: Appearance: grossly normal Mental Status: mental status grossly normal Assessment and Plan Assessment and plan (1) History of colonic polyps: Code(s): Z86.0100 - Personal history of colon polyps, unspecified Status: Acute Assessment and Plan: The patient is deemed a good candidate for the procedure. Consent signed. Will proceed.
--- NOTE | 2025-04-25 12:14 | S_PTH ---
PATIENT: Janis Patel LOC: [facility]#:[id number] AGE/SX: 69/F ROOM: RE04/25/[address]: Nathanael Roberto MD : 1955 BED: DIS: 04/25/2025 SPEC #: [id number] RECD: 04/25/25 12:45 STATUS: MANJIT REQ #: [id number] JD: 04/25/25 12:[address]: Nathanael Roberto DEPT: [facility] Surgical RECD BY: Tj Cisneros ENTERED: 04/25/25 12:46 SP TYPE: Surgical OTHR DR: Glenn PalomoMD Tissues: A - Colon Polypectomy B - Colon Polypectomy C - Colon Polypectomy Procedures: Hematoxylin and Eosin Stain Gross and Microscopic Level 4
[2025-04-25 12:17] VITALS: BP 101/70; PULSE 85; RESP 25; O2SAT 100
[2025-04-25 12:27] VITALS: BP 109/72; PULSE 78; RESP 18; O2SAT 100
[2025-04-25 12:37] VITALS: BP 128/75; PULSE 80; RESP 18; O2SAT 100
== END 2025-04-25 12:44 | disposition home or self-care (01) ==
PROVIDERS: PCP Family Medicine; Referring Provider Family Medicine; Visit Provider Internal Medicine Gastroenterology
PROC: 0DJD8ZZ Inspection of Lower Intestinal Tract, Via Natural or Artificial Opening Endoscopic (ICD-10-PCS; CPT 45378; principal; 2025-04-25 11:00)
DX: Z12.11 Encounter for screening for malignant neoplasm of colon (principal); D12.5 Benign neoplasm of sigmoid colon; D12.3 Benign neoplasm of transverse colon; K63.5 Polyp of colon; Z87.891 Personal history of nicotine dependence; E66.9 Obesity, unspecified; Z68.33 Body mass index [BMI] 33.0-33.9, adult
CPT/HCPCS: 45385; 88305; J2003; J2704; J7120